=== PATIENT | male | born 1940 | race Native Hawaiian/Other Pacific Islander ===

== ENCOUNTER 2017-07-12 14:29 | Emergency (ER) | payer OTHER ==
[~2017-07-12] VITALS: Ht 182.9 cm; Wt 90.7 kg
[~2017-07-12 14:29] MED LIST: CALAN SR120 MG PO; METOPROLOL25 M1 OR; WARF2.5T8 PO
[2017-07-12 16:21] VITALS: BP 148/85; TEMP 98.2
== END 2017-07-12 16:24 | disposition home or self-care (01) ==
LOC: ED 14:29
DX: M54.89 Other dorsalgia (principal)
CPT/HCPCS: 96372; 99282; J1885

== ENCOUNTER 2017-10-24 17:27 | Emergency (ER) | payer OTHER ==
[~2017-10-24] VITALS: Ht 182.9 cm; Wt 104.3 kg
[2017-10-24 19:24] VITALS: BP 147/86; TEMP 98.6
== END 2017-10-24 19:24 | disposition home or self-care (01) ==
LOC: ED 17:27
DX: M54.5 Low back pain (principal)
CPT/HCPCS: 96372; 99283; J2175; J2550

== ENCOUNTER 2017-10-31 13:26 | Emergency (ER) | payer OTHER ==
[~2017-10-31] VITALS: Ht 182.9 cm; Wt 104.3 kg
[2017-10-31 13:35] VITALS: BP 169/96; TEMP 98.6
== END 2017-10-31 15:31 | disposition home or self-care (01) ==
LOC: ED 13:26
DX: M54.5 Low back pain (principal)
CPT/HCPCS: 99282